=== PATIENT | female | born 1980 | race Hispanic/Latino ===

== ENCOUNTER 2017-07-29 01:35 | Emergency (ER) | payer OTHER ==
[2017-07-29 02:17] LABS: BASOPHILS % (AUTO) 0.9 % (0.0-5.0); EOSINOPHILS % (AUTO) 1.2 % (0.0-8.0); HEMATOCRIT 38.2 % (36-48); LYMPHOCYTES % (AUTO) 20.4 % (21.0-51.0); MEAN CORPUSCULAR HEMOGLOBIN 27.6 pg (27.0-33.0); MEAN CORPUSCULAR HGB CONC 33.5 g/dL (32.0-36.0); MEAN CORPUSCULAR VOLUME 82.2 fL (79-99); MONOCYTES % (AUTO) 7.7 % (3.0-13.0); NEUTROPHILS % (AUTO) 69.8 % (40.0-77.0); PLATELET COUNT (AUTO) 260 K/uL (130-400); RED BLOOD CELL COUNT(AUTO) 4.64 MIL/uL (4.00-5.50); RED CELL DISTRIBUTION WIDTH 13.9 % (11.0-15.5); WHITE BLOOD COUNT (AUTO) 10.4 K/uL (4.8-10.8)
[2017-07-29 02:19] LABS: APPEARANCE,URINE Clear (CLEAR); BILIRUBIN,URINE Negative (NEGATIVE); COLOR,URINE Yellow (YELLOW); GLUCOSE, URINE (UA) Negative (NEGATIVE); KETONES,URINE Negative (NEGATIVE); LEUKOCYTE ESTERASE ,URINE Small (NEGATIVE); NITRATE,URINE Negative (NEGATIVE); OCCULT BLOOD,URINE Moderate (NEGATIVE); PROTEIN,URINE Trace (NEGATIVE); UROBILINOGEN,URINE 0.2 mg/dL (0.2-1.0)
[2017-07-29 02:26] LABS: CREATININE 0.7 mg/dL (0.5-1.5); POTASSIUM 3.6 mmol/L (3.5-5.1)
[2017-07-29 02:31] LABS: BILIRUBIN,TOTAL 0.3 mg/dL (0.2-1.0); TOTAL PROTEIN, SERUM 8.2 g/dL (6.0-8.3)
[2017-07-29] MEDS ORDERED: ONDANSETRON HCL 4 MG/2 ML VIAL ONE (02:34)
[2017-07-29 02:35] LABS: BACTERIA,URINE Few /HPF (None Seen)
[2017-07-29 02:36] LABS: HCG,QUAL RESULT NEGATIVE (NEGATIVE); MUCUS,URINE Few LPF (None Seen); SQUAMOUS EPITHELIAL CELL,UR Moderate /LPF (0-2)
[2017-07-29] MEDS ORDERED: KETOROLAC TROMETHAMINE 30MG/ML ONE (02:36)
[2017-07-29] MEDS ORDERED: SODIUM CHLORIDE 0.9% 500ML 500 ML IV ONE (02:38)
[2017-07-29] MEDS ORDERED: ACETAMINOPHEN EXTRA STRENGTH 500 MG TABLET ONE (04:09)
== END 2017-07-29 05:07 | disposition home or self-care (01) ==
LOC: EDH 01:35
DX: N20.2 Calculus of kidney with calculus of ureter (principal); N23 Unspecified renal colic; Z98.51 Tubal ligation status; Z98.890 Other specified postprocedural states; Z88.5 Allergy status to narcotic agent
CPT/HCPCS: 36415; 76770; 80053; 81001; 81025; 85025; 96361; 96374; 96375; 99285; J1885; J2405; J7040

== ENCOUNTER 2017-08-01 16:14 | Inpatient (IN) | payer OTHER ==
[~2017-08-01] VITALS: Ht 170.2 cm; Wt 95.9 kg
[2017-08-01 17:08] LABS: APPEARANCE,URINE Clear (CLEAR); BILIRUBIN,URINE Negative (NEGATIVE); COLOR,URINE Dark Yellow (YELLOW); GLUCOSE, URINE (UA) Negative (NEGATIVE); HCG,QUAL RESULT NEGATIVE (NEGATIVE); KETONES,URINE 40 mg/dL (NEGATIVE); LEUKOCYTE ESTERASE ,URINE Small (NEGATIVE); NITRATE,URINE Negative (NEGATIVE); OCCULT BLOOD,URINE Negative (NEGATIVE); PH,URINE 6.5 (5.0-8.0); PROTEIN,URINE POS 1+ (NEGATIVE)
[2017-08-01 17:15] LABS: BACTERIA,URINE None Seen /HPF (None Seen); MUCUS,URINE Moderate LPF (None Seen); RBC,URINE None Seen /HPF (0-1)
[2017-08-01] MEDS ORDERED: ONDANSETRON HCL 4 MG/2 ML VIAL ONE (17:26)
[2017-08-01] MEDS ORDERED: HYDROMORPHONE HCL 2 MG/ML VIAL ONE (17:27)
[2017-08-01 17:56] LABS: CREATININE 0.9 mg/dL (0.5-1.5); POTASSIUM 3.5 mmol/L (3.5-5.1)
[2017-08-01 21:40] VITALS: BP 138/89
[2017-08-01] MEDS ORDERED: PHARMACY COMMUNICATION MISC SCH (22:15)
[2017-08-01] MEDS: SODIUM CHLORIDE 0.9% 1000ML 1,000 ML IV SCH (22:15)
[2017-08-01] MEDS ORDERED: ONDANSETRON HCL 4 MG/2 ML VIAL IVP PRN (22:15)
[2017-08-01] MEDS ORDERED: HYDROMORPHONE 1 MG/1 ML AMP IVP PRN (22:45)
[2017-08-02] VITALS: BP_SYST 124; BP_SYST 141; BP_DIAS 73; BP_DIAS 79
[2017-08-02] MEDS ORDERED: HYDROMORPHONE HCL 2 MG/ML VIAL ONE ×2 (00:02→19:30)
[2017-08-02] MEDS ORDERED: HYDRALAZINE HCL 20 MG/ML VIAL IV PRN (02:30)
[2017-08-02] MEDS ORDERED: ACETAMINOPHEN 325 MG TAB PO PRN (02:30)
[2017-08-02] MEDS: SODIUM CHLORIDE 0.9% 1000ML 1,000 ML IV SCH ×3 (03:42→19:36)
[2017-08-02 04:00] VITALS: BP 119/78
[2017-08-02 05:42] LABS: HEMATOCRIT 31.2 % (36-48); MEAN CORPUSCULAR HEMOGLOBIN 28.5 pg (27.0-33.0); MEAN CORPUSCULAR HGB CONC 35.3 g/dL (32.0-36.0); MEAN CORPUSCULAR VOLUME 80.7 fL (79-99); PLATELET COUNT (AUTO) 220 K/uL (130-400); RED BLOOD CELL COUNT(AUTO) 3.87 MIL/uL (4.00-5.50); RED CELL DISTRIBUTION WIDTH 13.9 % (11.0-15.5); WHITE BLOOD COUNT (AUTO) 7.1 K/uL (4.8-10.8)
[2017-08-02 05:50] LABS: CREATININE 0.8 mg/dL (0.5-1.5); POTASSIUM 3.6 mmol/L (3.5-5.1)
[2017-08-02 06:18] LABS: EOSINOPHILS % (MANUAL) 3 % (1-6); LYMPHOCYTES % (MANUAL) 17 % (22-44); MAN.DIFF COMMENT-IMPRESSION MANUAL DIFFERENTIAL; MONOCYTES % (MANUAL) 3 % (2-9); PLATELET MORPHOLOGY COMMENT ADEQUATE; REACTIVE LYMPHOCYTES 6 % (0-0); SEGMENTED NEUTROPHILS % 71 % (40-70)
[2017-08-02] MEDS: ONDANSETRON HCL 4 MG/2 ML VIAL IV PRN ×3 (07:39→19:35)
[2017-08-02] MEDS: FAMOTIDINE 20MG TAB 20 MG TAB PO SCH ×2 (07:49→19:35)
[2017-08-02 08:24] VITALS: BP 127/82
[2017-08-02] MEDS: FLU VACC QS2017-18 36MOS UP/PF 60 MCG/0.5 ML ML IM SCH ×2 (08:43→23:45)
[2017-08-02] MEDS ORDERED: POTASSIUM CHLORIDE 10% ELIXIR 20 MEQ/15 ML UDCUP PO PRN (09:15)
[2017-08-02] MEDS ORDERED: POTASSIUM CHLORIDE 20 MEQ ERTAB PO PRN (09:15)
[2017-08-02] MEDS: POTASSIUM CHLORIDE 20MEQ/100ML 100 ML IV PRN (10:21)
[2017-08-02] MEDS: LIDOCAINE HCL-MPF 1% 2ML VIAL IVP PRN (10:21)
[2017-08-02] MEDS ORDERED: HYDROMORPHONE 4MG/ML 1ML VIAL ONE (11:26)
[2017-08-02 11:47] VITALS: BP 136/83
[2017-08-02 16:24] VITALS: BP 129/76
[2017-08-02 20:15] VITALS: BP 133/80
[2017-08-02] MEDS ORDERED: CEFTRIAXONE 1GM/D5W 50ML 50 ML IV SCH (21:45)
[2017-08-02] MEDS: CEFTRIAXONE SODIUM 1 GM IVP SCH (22:55)
[2017-08-03] VITALS (22 sets, daily range): BP systolic 114–140; BP diastolic 69–90
[2017-08-03] MEDS ORDERED: HYDROMORPHONE HCL 2 MG/ML VIAL ONE (01:54)
[2017-08-03] MEDS: ONDANSETRON HCL 4 MG/2 ML VIAL IV PRN ×2 (02:04→08:55)
[2017-08-03 04:57] LABS: HEMATOCRIT 29.5 % (36-48); MEAN CORPUSCULAR HEMOGLOBIN 28.8 pg (27.0-33.0); MEAN CORPUSCULAR HGB CONC 35.7 g/dL (32.0-36.0); MEAN CORPUSCULAR VOLUME 80.7 fL (79-99); NUCLEATED RED BLOOD CELLS 0.1 % (0.0-0.19); PLATELET COUNT (AUTO) 213 K/uL (130-400); RED BLOOD CELL COUNT(AUTO) 3.66 MIL/uL (4.00-5.50); RED CELL DISTRIBUTION WIDTH 13.7 % (11.0-15.5); WHITE BLOOD COUNT (AUTO) 8.2 K/uL (4.8-10.8)
[2017-08-03 05:03] LABS: CREATININE 0.8 mg/dL (0.5-1.5); MAGNESIUM 1.6 mg/dL (1.80-2.40); POTASSIUM 3.6 mmol/L (3.5-5.1)
[2017-08-03] MEDS: POTASSIUM CHLORIDE 20MEQ/100ML 100 ML IV PRN (05:53)
[2017-08-03] MEDS: LIDOCAINE HCL-MPF 1% 2ML VIAL IVP PRN (05:53)
[2017-08-03] MEDS: SODIUM CHLORIDE 0.9% 1000ML 1,000 ML IV SCH ×3 (05:53→21:53)
[2017-08-03] MEDS: FAMOTIDINE 20MG TAB 20 MG TAB PO SCH ×2 (08:55→20:34)
[2017-08-03] MEDS ORDERED: MAGNESIUM 2GM PREMIX 50ML 50 ML IV SCH (10:15)
[2017-08-03] MEDS ORDERED: LACTATED RINGERS 1000ML 1,000 ML IV ONE (10:21)
[2017-08-03] MEDS ORDERED: GLYCOPYRROLATE 0.2 MG/ML 5 ML VIAL ONE (10:42)
[2017-08-03] MEDS ORDERED: SUCCINYLCHOLINE 200MG/10ML SYR ONE (10:42)
[2017-08-03] MEDS ORDERED: LIDOCAINE PF 2% 5ML ABBOJECT ONE (10:42)
[2017-08-03] MEDS ORDERED: DEXAMETHASONE SOD PHOSPHATE 10MG/ML 1ML VIAL ONE (10:42)
[2017-08-03] MEDS ORDERED: MIDAZOLAM HCL 1 MG/ML 2ML VIAL ONE (10:42)
[2017-08-03] MEDS ORDERED: PROPOFOL 10 MG/ML 20ML VIAL IV ONE (10:42)
[2017-08-03] MEDS ORDERED: ONDANSETRON HCL 4 MG/2 ML VIAL ONE (10:42)
[2017-08-03] MEDS ORDERED: FENTANYL CITRATE PF 50 MCG/1 ML 2ML VIAL ONE ×2 (10:43→11:18)
[2017-08-03] MEDS ORDERED: ISOVUE-370 50ML VIAL IV ONE (10:48)
[2017-08-03] MEDS ORDERED: SODIUM CHLORIDE 0.9% 250 ML IV ONE (13:05)
[2017-08-03] MEDS: FLU VACC QS2017-18 36MOS UP/PF 60 MCG/0.5 ML ML IM SCH (21:53)
[2017-08-03] MEDS: CEFTRIAXONE SODIUM 1 GM IVP SCH (21:53)
[2017-08-04 04:00] VITALS: BP 111/76
[2017-08-04 05:05] LABS: HEMATOCRIT 32.6 % (36-48); MEAN CORPUSCULAR HEMOGLOBIN 28.3 pg (27.0-33.0); MEAN CORPUSCULAR HGB CONC 34.6 g/dL (32.0-36.0); MEAN CORPUSCULAR VOLUME 81.9 fL (79-99); PLATELET COUNT (AUTO) 261 K/uL (130-400); RED BLOOD CELL COUNT(AUTO) 3.98 MIL/uL (4.00-5.50); RED CELL DISTRIBUTION WIDTH 13.7 % (11.0-15.5); WHITE BLOOD COUNT (AUTO) 7.7 K/uL (4.8-10.8)
[2017-08-04 05:18] LABS: CREATININE 0.7 mg/dL (0.5-1.5); MAGNESIUM 1.9 mg/dL (1.80-2.40); POTASSIUM 3.7 mmol/L (3.5-5.1)
[2017-08-04] MEDS: SODIUM CHLORIDE 0.9% 1000ML 1,000 ML IV SCH (07:31)
[2017-08-04] MEDS ORDERED: CEFD300C3 PO (07:37)
[2017-08-04] MEDS ORDERED: ACET-2247 PO (07:37)
[2017-08-04 07:49] VITALS: BP 133/82
== END 2017-08-04 09:32 | disposition home or self-care (01) | DRG 669 ==
LOC: EDH 16:14 → EDHIP 19:20 → 4AH 21:26
PROVIDERS: ADMIT Family Medicine; ATTEND Family Medicine
PROC: 0T778DZ Dilation of Left Ureter with Intraluminal Device, Via Natural or Artificial Opening Endoscopic (ICD-10-PCS; principal; 2017-08-03 10:48)
PROC: 0TC78ZZ Extirpation of Matter from Left Ureter, Via Natural or Artificial Opening Endoscopic (ICD-10-PCS; 2017-08-03 10:48)
PROC: 3E0234Z Introduction of Serum, Toxoid and Vaccine into Muscle, Percutaneous Approach (ICD-10-PCS; 2017-08-03 10:48)
DX: N13.2 Hydronephrosis with renal and ureteral calculous obstruction (principal); E66.9 Obesity, unspecified; Z68.33 Body mass index [BMI] 33.0-33.9, adult; Z88.8 Allergy status to other drugs, medicaments and biological substances; Z87.442 Personal history of urinary calculi; Z23 Encounter for immunization
CPT/HCPCS: 36415; 74176; 76000; 80048; 81001; 81025; 83735; 84132; 85025; 85027; 87071; 87076; 87088; 87205; A4218; C1758; C1769; C1894; C2617; G0008; J0330; J0696; J1100; J1170; J2001; J2250; J2405; J2704; J3010; J3475; J3480; J3490; J7030; J7120; Q2038; Q9967